=== PATIENT | male | born 1985 | race Caucasian/White ===

== ENCOUNTER 2024-01-26 19:41 | Emergency (ER) | payer OTHER, SELFPAY ==
[2024-01-26 19:58] VITALS: BP 130/87; PULSE 101; RESP 20; TEMP 35.9; O2SAT 100
--- NOTE | 2024-01-26 20:06 | ED.EYEPROB ---
HPI - Eye Problem General Chief complaint: Eye Problems <Linda Escobedo Miguel Ángel GENERATING [employer] MECHANIC - Last Filed: 01/26/24 20:08> Stated complaint: right eye <Linda Escobedo RIK Del Rosario - Last Filed: 01/26/24 20:08> Time Seen by Provider: 01/26/24 19:55 <Linda L. Miguel Ángel GENERATING [employer] MECH[employer]IC - Last Filed: 01/26/24 20:08> Focused HPI: Patient is 12-year-old male who presents to the ER with right eye redness and pain. He reports his symptoms started acutely at 5:00 p.m. today. Patient is unsure as to whether or not he has a foreign object in his eye. He reports his eye has been watering and it feels like a blow torch in there. Patient endorses mild relief of his eye pain when he blows his nose. He reports the pain in his right eye is also affecting the vision in his left eye. GENERAL: Well-appearing, well-nourished, and in no acute distress. HEAD: Normocephalic. R eye sclera reddened, no notable drainage from R eye. L eye clear, white sclera. CHEST: Clear to auscultation. ?No respiratory distress. HEART: Regular rate and rhythm.? NEURO: ?Alert and oriented x3. Patient screened in triage and initial orders placed.? ?Additional care and disposition to be based upon?diagnostic testing and treatment. <Linda LWen Del Rosario GENERATING [employer]ATION MECHANIC - Last Filed: 01/26/24 20:08> Focused HPI: Patient is 12-year-old male who presents to the ER with right eye redness and pain. He reports his symptoms started acutely at 5:00 p.m. today. Patient is unsure as to whether or not he has a foreign object in his eye. He reports his eye has been watering and it feels like a blow torch in there. Patient endorses mild relief of his eye pain when he blows his nose. He reports the pain in his right eye is also affecting the vision in his left eye. GENERAL: Well-appearing, well-nourished, and in no acute distress. HEAD: Normocephalic. R eye sclera reddened, no notable drainage from R eye. L eye clear, white sclera. CHEST: Clear to auscultation. ?No respiratory distress. HEART: Regular rate and rhythm.? NEURO: ?Alert and oriented x3. Patient screened in triage and initial orders placed.? ?Additional care and disposition to be based upon?diagnostic testing and treatment. <Gabby Miranda PA-C - Last Filed: 01/27/24 00:47> Source: patient <FRANKLIN Hill Last Filed: 01/27/24 00:47> Mode of arrival: ambulatory <Gabby Miranda PA-C - Last Filed: 01/27/24 00:47> Limitations: no limitations <FRANKLIN Hill Last Filed: 01/27/24 00:47> History of Present Illness HPI Narrative: Agree with above HPI. States he woke up from a nap and felt as though his contacts were bothering him. Took his contacts out, went back to sleep, but complains of persistent pain throughout the right eye. <Gabby Miranda PA-C - Last Filed: 01/27/24 00:47> Related Data Allergies/adverse reactions: Allergies Allergy/AdvReac Type Severity Reaction Status Date / Time haloperidol [From [facility]] Allergy Anaphylaxis Verified 01/26/24 19:59 <Linda Del Rosario APRN - Last Filed: 01/26/24 20:08> Review of Systems Review of Systems: All systems reviewed & are unremarkable except as noted in HPI. <Gabby Miranda PA-C - Last Filed: 01/27/24 00:47> All systems reviewed & are unremarkable except as noted in HPI and below <Gabby Miranda PA-C - Last Filed: 01/27/24 00:47> Exam Narrative: GENERAL: Well appearing, in no acute distress. HEAD: Normocephalic, atraumatic. EYES: PERRL/EOMI, L conjunctiva clear. R conjunctiva diffusely erythematous with serous drainage. Difficulty opening eye due to discomfort. No chemosis or proptosis. No obvious foreign body. No periorbital swelling or erythema. RESPIRATORY: Airway patent, respirations nonlabored. CARDIOVASCULAR: Regular rate and rhythm MUSCULOSKELETAL: Moves all extremities. No gross deformities. SKIN: Warm, dry, normal color. NEURO: A&O X3. Speech clear. PSYCHIATRIC: Appropriate mood and affect. Normal interaction. <Gabby Miranda PA-C - Last Filed: 01/27/24 00:47> Course Vital Signs Vital signs: Vital Signs Temperature 96.6 F L 01/26/24 19:58 Pulse Rate 101 H 01/26/24 19:58 Respiratory Rate 20 01/26/24 19:58 Blood Pressure 130/87 01/26/24 19:58 Pulse Oximetry 100 01/26/24 19:58 Oxygen Delivery Room Air 01/26/24 19:58 Temperature 96.6 F L 01/26/24 19:58 Pulse Rate 84 01/27/24 00:36 Respiratory Rate 15 01/27/24 00:36 Blood Pressure 128/70 01/27/24 00:36 Pulse Oximetry 100 01/27/24 00:36 Oxygen Delivery Room Air 01/26/24 19:58 <Linda Del Rosario, GENERATING [employer] MECH[employer]IC - Last Filed: 01/26/24 20:08> Vital Signs Temperature 96.6 F L 01/26/24 19:58 Pulse Rate 101 H 01/26/24 19:58 Respiratory Rate 20 01/26/24 19:58 Blood Pressure 130/87 01/26/24 19:58 Pulse Oximetry 100 01/26/24 19:58 Oxygen Delivery Room Air 01/26/24 19:58 Temperature 96.6 F L 01/26/24 19:58 Pulse Rate 84 01/27/24 00:36 Respiratory Rate 15 01/27/24 00:36 Blood Pressure 128/70 01/27/24 00:36 Pulse Oximetry 100 01/27/24 00:36 Oxygen Delivery Room Air 01/26/24 19:58 <Gabby Miranda PA-C - Last Filed: 01/27/24 00:47> MDM - Eye Problem MDM Narrative Medical decision making narrative: Lid eversion revealed no foreign body. Intra-ocular pressures were evaluated and normal in right eye, 13-16. Fluorescein staining with Wood's lamp examination revealed small conjunctival abrasion at the 7oclock region from the iris. After patient received tetracaine eyedrops, he was able to open eye more fully and denies significant vision changes. Reporting drainage was bothersome, but otherwise was able to visualize myself and correctly identify number of fingers. Patient will be treated with ofloxacin. Advised to discontinue contact use until finished with antibiotics. Advised to follow up with Ophthalmology for further evaluation. Given strict return precautions. He agrees with plan. Discharged in stable condition. <Gabby Miranda PA-C - Last Filed: 01/27/24 00:47> Medical Records Attestation: I reviewed the patient's medical records. <Gabby Miranda PA-C - Last Filed: 01/27/24 00:47> Discharge Plan Discharge Clinical Impression: Conjunctival abrasion Qualifiers: Encounter type: initial encounter Laterality: left Qualified Code(s): S05.02XA - Injury of conjunctiva and corneal abrasion without foreign body, left eye, initial encounter <Linda Del Rosario APRN - Last Filed: 01/26/24 20:08> Patient Disposition: Home, Self-Care <Linda Del Rosario APRN - Last Filed: 01/26/24 20:08> Condition: Stable <Linda Del Rosario APRN - Last Filed: 01/26/24 20:08> Instructions: Antibiotic Form, Corneal Abrasion (ED), Eye Pain (ED) <Linda Del Rosario APRN - Last Filed: 01/26/24 20:08> Additional Instructions: Utilize antibiotic eyedrops as prescribed over next 5-7 days. Follow-up with Ophthalmology for further evaluation if needed. Throw away current pair of contacts and avoid contact use until you finish your antibiotics. Return to the ED if you experience worsening or severe symptoms, fevers, swelling around eye, or any other symptoms of concern. <Linda Del Rosario APRN - Last Filed: 01/26/24 20:08> Prescriptions: New ofloxacin 0.3 % drops 2 drp RIGHT EYE QID Qty: 5 0RF <Linda Del Rosario APRN - Last Filed: 01/26/24 20:08> Follow-up/Referrals: [facility] Granger [Outside] [facility]ilera [Outside] PHYSICIAN,HO[facility] STRIPPER [Non-Staff] - <Linda Del Rosario APRN - Last Filed: 01/26/24 20:08> Stand Alone Forms: Work/School Release IP <Linda Del Rosario APRN - Last Filed: 01/26/24 20:08> Time of Disposition: 00:23 <Linda Del Rosario APRN - Last Filed: 01/26/24 20:08> 00:23 <Gabby Miranda PA-C - Last Filed: 01/27/24 00:47>
--- NOTE | 2024-01-26 22:26 | PC.NURSE ---
Pt approached nurses station stating he is hot and would like to step outside. Pt educated that is not recommended. Pt is A&O x4 with no IV. Pt continued to walk outside stating he is not leaving.
--- NOTE | 2024-01-26 22:50 | PC.NURSE ---
Pt walked back into ED. Pt yelling at multiple nurses at the nurses station. Pt upset that nurses cannot turn down the temperature of the room. Pt continues to yell and where's my ibuprofen! Pt educated that a provider has now been assigned to him and ibuprofen will be requested. Pt also upset about the length of time it has taken to see a provider. NICHO Pierre notified. Pt reluctantly cooperative in returning to assigned room. SAFIA Sevilla aware of pt complaints.
[2024-01-26] MEDS: IBUPROFEN 600 MG TABLET PO (22:59)
[2024-01-27] MEDS: OFLOXACIN 0.3% OPHTH SOLN 5 ML BTL 3 DROP AFFCTD EYE (00:12)
[2024-01-27 00:36] VITALS: BP 128/70; PULSE 84; RESP 15; O2SAT 100
== END 2024-01-27 00:37 | disposition home or self-care (01) ==
PROVIDERS: Emergency Provider Physician Assistant
DX: S05.02XA Injury of conjunctiva and corneal abrasion without foreign body, left eye, initial encounter (principal); X58.XXXA Exposure to other specified factors, initial encounter
CPT/HCPCS: 99283; A9270